=== PATIENT | female | born 2000 | race Caucasian/White ===

== ENCOUNTER 2020-01-29 14:15 | Outpatient (RCR) | payer OTHER, SELFPAY ==
--- NOTE | 2020-01-17 15:33 | PTOPEVAL ---
Thank you for referring Erika Lopez to [facility].? The patient is scheduled to be seen for therapy? 2 x/week for 8 weeks. Please review, sign, date and return this plan of care JENNA. I agree with and certify that the following plan of care is medically necessary. Referring Physician Date Referring Provider: Dr. Adarsh Canas MD *PT Outpatient Evaluation Start: 01/17/20 13:24 Freq: Status: Active Protocol: Document 01/17/20 13:26 CLARIBEL (Rec: 01/17/20 14:37 CAP [email or web address]) Therapy Assessment Status Assessment Status Assessment Status Evaluation Outpatient Past Medical History Past Medical History Source of Past Medical History Patient Neurological History Hx Neurological Disorders No Significant History Cardiovascular History Hx Cardiac Disorders No Significant History Respiratory History Hx Asthma Yes Gastrointestinal History Hx Irritable Bowel Yes Hx Other Gastrointestinal Disorders Yes: constipation Musculoskeletal History Hx Musculoskeletal Disorders No Significant History Endocrine History Hx Endocrine Disorders No Significant History Evaluation Information Problem Diagnosis M72.2 plantar fasciitis, M65. 872 tendosynovitis Onset 05/2018 Cause prolonged standing Additional Evaluation Detail She was working 2 jobs that required prolonged standing. She attended therapy wearing no supportive Keds tennis shoes. Subjective Information She is on her feet for Query Text:As Reported By Patient/ prolonged periods for work. Family She has increased pain after 2 hours with progression of pain She has received 4 cortison injections for left heel/foot with min changes in symptoms. She is wearing OTS inserts with no changes in symptoms with use. Her calf was too large to fit into an OTS AFO night stretching brace. Pain Assessment Timing of Pain Assessment Timing of Pain Assessment Re-assessment Pain Scale Pain Scale Used Numeric (1 - 10) Self Report Pain Assessment Left Foot/Feet Reported Pain Level 2 Pain Description Stabbing,Tender on Palpation, Throbbing Pain Frequency Chronic,Intermittent Lowest Pain Intensity 0 Greatest Pain Intensity 8
--- NOTE | 2020-01-31 11:46 | PCPTNOTE ---
Patient did not show up for scheduled appointment this date. Called patient, then patient hung up. Called back and left a message.
--- NOTE | 2020-02-21 11:17 | PCPTNOTE ---
Admitting Provider: Attending Provider: Dr. Adarsh Canas MD Patient:Erika Lopez Date of :2000 Discharge Note Patient has not returned for any further treatments since 01/29/2020, due she called to cancel her follow-up therapy visits. Therefore she will be discharged at this time. Patient?s initial visit was on 01/17/2020 13:30 and she had a total of 3 visits. The goals have been not met due to limited number of therapy visits she attended. Thank you for referring this patient to [facility]. Please review, sign, date and return this discharge summary JENNA. I have been updated about the patient's current status and I agree with discharge from the above service at this time. Referring Physician Date
== END 2020-02-22 08:48 | disposition home or self-care (01) ==
LOC: ANHPT 14:15
PROVIDERS: PCP Pediatrics
DX: M65.872 Other synovitis and tenosynovitis, left ankle and foot (principal); M72.2 Plantar fascial fibromatosis
CPT/HCPCS: 97110; 97112; 97140; 97162

== ENCOUNTER 2021-10-20 12:51 | Outpatient (CLI) | payer OTHER, SELFPAY | END 2021-10-20 12:52 | disposition home or self-care (01) | LOC: ANHLAB 12:57 | PROVIDERS: PCP Hospitalist; Visit Provider Obstetrics & Gynecology | DX: Z32.01 Encounter for pregnancy test, result positive (principal) | CPT/HCPCS: 36415; 84702; 86850; 86900; 86901 ==

== ENCOUNTER 2021-10-22 11:10 | Outpatient (CLI) | payer OTHER, SELFPAY ==
[2021-10-22 12:50] LABS: Beta HCG Quantitative 288.79 mIU/ML
== END 2021-10-22 11:11 | disposition home or self-care (01) ==
LOC: ANHLAB 11:12
PROVIDERS: PCP Hospitalist; Visit Provider Obstetrics & Gynecology
DX: Z32.01 Encounter for pregnancy test, result positive (principal)
CPT/HCPCS: 36415; 84702